=== PATIENT | female | born 2000 | race Caucasian/White ===

== ENCOUNTER 2021-08-09 17:39 | Emergency (ER) | payer OTHER, SELFPAY ==
[2021-08-09 17:48] VITALS: BP 131/75; PULSE 108; RESP 16; TEMP 37.3; O2SAT 100
--- NOTE | 2021-08-09 17:48 | ED.SKABFB ---
HPI - Skin/Abscess/Foreign Bdy General Chief complaint: Wound/Laceration Stated complaint: lt leg inf Time Seen by Provider: 08/09/21 17:45 Source: patient, RN notes reviewed and old records reviewed Mode of arrival: ambulatory Limitations: no limitations History of Present Illness HPI narrative: 21-year-old female presents to the [facility] with complaints of an insect bite that is now infected to the lateral left lower leg. States that she noticed the bite this yesterday and has had increased redness, warmth and inflammation to the area since. No treatment prior to arrival Denies fevers, chest pain, abdominal pain. No shortness of breath, nausea, vomiting or diarrhea. Full range of motion distal to injury. Capillary refill under 2 seconds. Walks with a normal gait Related Data Home Medications Medication Instructions Recorded Confirmed dextroamphetamine-amphetamine 08/09/21 levonorgestrel [Kyleena] 1 device INTRAUTERINE ONCE 08/09/21 08/09/21 Allergies Allergy/AdvReac Type Severity Reaction Status Date / Time clavulanic acid Allergy Mild Other Verified 08/09/21 17:47 Penicillins Allergy Mild Other Verified 08/09/21 17:47 BETALACTAMASEIN Allergy Mild Other Uncoded 08/09/21 17:47 AMOXICILLIN TRIHYDRATE AdvReac Mild Other Uncoded 08/09/21 17:47 POTASSIUM CLAVULANATE AdvReac Mild Other Uncoded 08/09/21 17:47 Review of Systems Review of Systems: All systems reviewed & are unremarkable except as noted in HPI and below Constitutional: Constitutional: Reports no additional constitutional complaints, Denies chills and Denies fever(s) Eyes: Eyes: Reports no additional eye complaints ENT: Reports system reviewed and no additional complaints, except as documented Cardiovascular: Cardiovascular: Reports no additional cardiovascular complaints Respiratory: Respiratory: Reports no additional respiratory complaints Musculoskeletal: Musculoskeletal: Reports no additional musculoskeletal complaints Integumentary/Breasts: Skin/Breast: Reports as per HPI and Reports erythema (Lateral left lower leg) Neurologic: Reports system reviewed and no additional complaints, except as documented Psychiatric: Psychiatric: Reports no additional psychiatric complaints Allergic/Immunologic: Allergic/Immunologic: Reports no additional allergic/immunologic complaints PMFSH Past Medical History Medical History ADHD Surgical History Surgical History (Updated 08/09/21 @ 17:54 by Jazlyn Harris) No pertinent past surgical history Social History Social History (Updated 08/09/21 @ 17:54 by Jazlny Harris) Gender identity (if verbalized by the patient): Female Comments At the time of my signature, I reviewed and agree with the nursing past medical, surgical, social, and family history. There is no relevant family history pertinent to the patient complaint. Exam Const: General: healthy appearing, no acute distress and alert Nutritional Appearance: well nourished Orientation/consciousness: patient oriented x3 Limitations: no limitations HENMT: Head: normal to inspection Eyes: Pupils: Equal, round and reactive pupils present Neck: Neck: normal visual inspection, no lymphadenopathy and no meningeal signs Chest: Chest palpation & inspection: normal inspection of the chest Resp: Effort & Inspection: normal respiratory effort Cardio: Rate: regular rate Rhythm: regular rhythm Back/Spine/Pelvis: Back: no CVA tenderness Skin: Other: 4 x 4 centimeter left lateral lower leg red raised warm area without a fluctuant center. No drainage noted. Neuro: General: patient oriented x3, moves all extremities, no meningeal signs and no focal motor deficits Speech: normal speech Gait exam (Neuro): Normal gait present Extrem: General: normal to inspection and no pedal edema Psych: Appearance: grossly normal and well kempt Mental Status: mental status grossly normal Affect: normal aff
== END 2021-08-09 17:53 | disposition home or self-care (01) ==
PROVIDERS: Emergency Provider Nurse Practitioner; PCP Emergency Medicine
DX: L03.116 Cellulitis of left lower limb (principal); F90.9 Attention-deficit hyperactivity disorder, unspecified type
CPT/HCPCS: 99213; G0463